=== PATIENT | male | born 1990 | race Caucasian/White ===

== ENCOUNTER 2016-12-09 18:34 | Emergency (ER) | payer OTHER ==
[~2016-12-09] VITALS: Ht 180.3 cm; Wt 90.2 kg
[~2016-12-09 18:34] MED LIST: 12 HOUR DECONG120 M1 PO; MOTRIN600 MG PO; MOTRIN800 MG PO; NOHOMEMEDS; PEN-VEE K,VEET500 MG PO; ZOFRAN4 MG PO
[2016-12-09 18:57] VITALS: BP 128/79
== END 2016-12-09 22:30 | disposition left against medical advice (07) ==
LOC: EME 18:34
DX: Z04.6 Encounter for general psychiatric examination, requested by authority (principal); Z53.21 Procedure and treatment not carried out due to patient leaving prior to being seen by health care provider